=== PATIENT | female | born 1940 | race Caucasian/White ===

== ENCOUNTER → 2017-06-23 | Outpatient (CLI) | payer OTHER ==
[~2017-06-23] MED LIST: CYCL-36 PO; ENAL10TA7 PO; FLUO20TA20 PO; FURO1TAB93 PO; GLUCTAB PO; HORMONE PO; HYDR10TA16 PO; POTA-243 PO; WARF1TAB PO
== END ==
LOC: HRSP 12:35
PROVIDERS: ATTEND Internal Medicine
DX: J44.9 Chronic obstructive pulmonary disease, unspecified (principal); J45.909 Unspecified asthma, uncomplicated
CPT/HCPCS: 36600; 82805; 94618; 95012